=== PATIENT | female | born 1980 | race Caucasian/White ===

== ENCOUNTER 2019-07-28 09:26 | Outpatient (CLI) | payer BC ==
[2019-07-28 16:58] LABS: #Basophils 0.1 thou/uL (0.0-0.2); #Eosinphils 0.2 thou/uL (0.0-0.7); #Lymphocytes 2.6 thou/uL (1.20-3.40); #Monocytes 0.4 thou/uL (0.11-0.59); #Neutrophils 3.4 thou/uL (1.40-6.50); %Basophils 1.1 % (0.0-1.0); %Eosinophils 2.4 % (0.0-10.0); %Lymphocytes 39.3 % (21.0-51.0); %Monocytes 6.4 % (0.0-10.0); %Neutrophils 50.9 % (42.0-75.0); Hemoglobin 12.8 g/dL (12.0-16.0); Mean Corpuscular HGB CONC 33.7 g/dL (32.0-36.0); Mean Corpuscular Hemoglobin 31.9 pg (27.0-31.0); Mean Corpuscular Volume 94.8 fL (78.0-98.0); Mean Platelet Volume 7.1 fL (7.4-10.4); Platelet Count 237 thou/uL (130-400); RBC Distribution Width 11.4 % (11.5-14.5); Red Blood Cell (RBC) Count 4.02 mill/uL (4.20-5.40); White Blood Cell (WBC) Count 6.6 thou/uL (4.8-10.8)
[2019-07-28 17:06] LABS: BHCG - Serum Negative (NEGATIVE); Pregs Control Background? CLEAR/WHITE (CLR/WHITE); Pregs Control Bar Appear? YES (CONTROL BAR)
== END 2019-07-28 09:27 | disposition home or self-care (01) ==
LOC: LABBT 09:26
PROVIDERS: ATTEND Orthopaedic Surgery
DX: Z01.812 Encounter for preprocedural laboratory examination (principal); M24.9 Joint derangement, unspecified
CPT/HCPCS: 84703; 85025

== ENCOUNTER 2019-07-30 07:51 | Day surgery (SDC) | payer BC ==
[2019-07-28 16:31] VITALS: BMI 23.6
[2019-07-30] MEDS ORDERED: Clindamycin/D5W 600 mg/50 ml Premix Bag ONE (08:20)
[2019-07-30] MEDS ORDERED: Midazolam HCl 2 mg/2 ml Vial ONE (09:02)
[2019-07-30] MEDS ORDERED: Fentanyl 100 MCG/2 ML VIAL ONE ×2 (09:03→12:44)
[2019-07-30] MEDS ORDERED: Zolpidem Tartrate 5 MG TAB PO PRN (09:42)
[2019-07-30] MEDS ORDERED: HYDROcodone/Acetaminophen 5/325 mg Tablet PO PRN ×2 (09:42)
[2019-07-30] MEDS ORDERED: traMADol HCl 50 MG TAB PO PRN ×2 (09:42)
[2019-07-30] MEDS ORDERED: Ondansetron PF 4 MG/2 ML Vial IVP PRN (09:42)
[2019-07-30] MEDS ORDERED: Promethazine HCl 25 MG/ML VIAL IM PRN (09:42)
[2019-07-30] MEDS ORDERED: Ketorolac Tromethamine 30 MG/ML VIAL IVP PRN (09:42)
[2019-07-30] MEDS ORDERED: Ropivacaine 0.2% 550 ML 550 ML NERVE BLCK SCH (09:42)
[2019-07-30] MEDS ORDERED: Fentanyl 100 MCG/2 ML VIAL IV PRN (09:43)
[2019-07-30] MEDS ORDERED: Lidocaine 1% PF 5 ML VIAL ONE (10:50)
[2019-07-30] MEDS ORDERED: Ropivacaine 0.5% HCl/PF (150 MG/30 ML VIAL) ONE (10:50)
[2019-07-30] MEDS ORDERED: Ropivacaine 0.2% HCl/PF (40 MG/20 ML VIAL) ONE (10:50)
[2019-07-30] MEDS ORDERED: Ondansetron PF 4 MG/2 ML Vial ONE (10:50)
[2019-07-30] MEDS ORDERED: PROPOFOL 200 MG/20 ML VIAL ONE (10:50)
[2019-07-30] MEDS ORDERED: Rocuronium Bromide 10 MG/ML (10ML VIAL) ONE (10:50)
[2019-07-30] MEDS ORDERED: Ketorolac Tromethamine 30 MG/ML VIAL ONE (10:50)
[2019-07-30] MEDS ORDERED: Lidocaine 1% w/Epinephrine 1:100K 30 ML VIAL ONE (10:58)
--- NOTE | 2019-07-30 18:12 | OP ---
DATE OF PROCEDURE: 07/30/2019 PREOPERATIVE DIAGNOSIS: Left shoulder pain that has been unresponsive to nonoperative methods with a normal MRI. POSTOPERATIVE DIAGNOSIS: Biceps instability secondary to tear of the very upper portion of the subscap/bicipital sling leading to instability anteriorly. PROCEDURES PERFORMED: Left shoulder arthroscopy with subacromial decompression followed by open biceps tenodesis. SEWING PATTERN LAYOUT TECHNICIAN: Cristian Dickinson PA-C ESTIMATED BLOOD LOSS: Minimal. COMPLICATIONS: None. ANESTHESIA: She did have a general anesthetic. She also had a preoperative block. DISPOSITION: She went to recovery room in stable condition. IMPLANT: [employer] biceps tenodesis screw, which was 7 x 23. INDICATIONS: A 38-year-old female who has temporary relief from injections in the shoulder, but has failed to get long-lasting relief with the injections and therapy and at this time presenting for diagnostic arthroscopy and treatment as indicated. DESCRIPTION OF PROCEDURE: After all appropriate consent forms were explained and signed, she was taken back to the operative room and at this time was given general anesthetic. Once the level of anesthesia was appropriate, she was rolled into the right lateral decubitus position with all bony prominences well padded. Axillary roll was placed underneath the right axilla and a hughes bag was inflated to hold in this position. The arm was then suspended with 7 pounds in standard fashion. The left shoulder and upper extremity were then prepped and draped in standard surgical fashion. Bony anatomical landmarks were then drawn out and the subacromial space was infiltrated with Marcaine with epinephrine. Posterior portal was established. Scope was placed into the glenohumeral joint. Anterior working portal was made. At this time, diagnostic arthroscopy commenced. The articular surface of the humeral head and glenoid were in good condition. There were no loose bodies in the axillary pouch. The rotator cuff was intact. The biceps tendon on its undersurface appeared to be intact. As we evaluated the top portion of the biceps, it was apparent that there had been multiple times where there have been inflammation and subsequent scarring as there were multiple fibrous bands attaching it to the surrounding superior tissues and there was noted to be a tear of the upper portion of the subscapularis and when probing, appeared to be destabilization with the biceps coming out of the groove anteriorly. Again, posterior appeared normal. This area of the tear was debrided and at this time, a needle was used to penetrate the biceps tendon and a stitch was placed through it. The SERFAS energy was then used to cut the biceps off the labral insertion. We then repositioned the camera from the glenohumeral joint to the subacromial space. Lateral working portal was made. Bursa was removed from off the underlying rotator cuff and a small bony decompression was performed using the SERFAS energy as well as a shaver. Once this was done, the cuff was evaluated fully and found to be completely intact. At this time, we then removed the camera, drained the shoulder and went about to perform our biceps tenodesis. A 15 blade was used to incise down through skin. The Bovie was used to coagulate any brisk venous bleeding. The deltoid fascia fibers were opened sharply and finger dissection was then used to open these up in line with the fibers to get down to the underlying transverse humeral ligament. This was opened up and the biceps tendon pulled out of the wound. All brisk venous bleeding was coagulated. At this time, we sutured the biceps tendon and removed the intra-articular portion. We then placed our guide pin followed by using the 7-mm reamer to ream to a depth of 25. A 7 x 23 Bio[employer]posite Bio-Tenodesis screw was then used. We then tied our sutures over top of the screw, so the screw could not back out. At this time, we thoroughly irrigated and dried our incision. We allowed our deltoid to close upon itself. We ran a Vicryl to close our deltoid fascia, 2-0 Vicryl and nylon sutures to close skin. Each portal was then closed with simple nylon stitch as well. At this time, a bulky sterile dressing was applied. The patient was then awakened. She was taken to recovery room in stable condition. All counts were correct at the end of the case and she did receive preoperative IV antibiotics. Job ID: [id number]
== END 2019-07-30 14:07 | disposition home or self-care (01) ==
LOC: SDC 07:51
PROVIDERS: ATTEND Orthopaedic Surgery
PROC: 0RNK4ZZ Release Left Shoulder Joint, Percutaneous Endoscopic Approach (ICD-10-PCS; principal; 2019-07-30)
PROC: 0RBK4ZZ Excision of Left Shoulder Joint, Percutaneous Endoscopic Approach (ICD-10-PCS; principal; 2019-07-30)
PROC: 0RHK04Z Insertion of Internal Fixation Device into Left Shoulder Joint, Open Approach (ICD-10-PCS; principal; 2019-07-30)
PROC: 0LS20ZZ Reposition Left Shoulder Tendon, Open Approach (ICD-10-PCS; principal; 2019-07-30)
PROC: 3E0T3BZ Introduction of Anesthetic Agent into Peripheral Nerves and Plexi, Percutaneous Approach (ICD-10-PCS; principal; 2019-07-30)
DX: S46.012A Strain of muscle(s) and tendon(s) of the rotator cuff of left shoulder, initial encounter (principal); M25.312 Other instability, left shoulder; G89.18 Other acute postprocedural pain; Z87.820 Personal history of traumatic brain injury; Z88.0 Allergy status to penicillin; X50.1XXA Overexertion from prolonged static or awkward postures, initial encounter
CPT/HCPCS: A4306; C1713; J1885; J2001; J2250; J2405; J2704; J2795; J3010; J3490

== ENCOUNTER 2020-05-29 14:10 | Outpatient (CLI) | payer BC ==
--- NOTE | 2020-05-29 15:03 | MMO ---
Left Breast MAMMO Unilat Diag DDI LT+SAKSHI. CLINICAL HISTORY: Patient is 39 years old and is seen for additional evaluation requested at current screening. The patient has no family history of breast cancer. The patient has no personal history of cancer. The patient has a history of bilateral Implants - saline. VIEWS: The views performed were: left craniocaudal spot compression with tomosynthesis; left mediolateral oblique spot compression with tomosynthesis; left mediolateral with tomosynthesis; and left Implant displaced with tomosynthesis. FILMS COMPARED: The present examination has been compared to prior imaging studies performed at [facility] on 05/23/2020 and 05/29/2020. This study has been interpreted with the assistance of computer-aided detection. MAMMOGRAM FINDINGS: Additional views were performed. Left breast nodule persists. US was performed. Please see US report. IMPRESSION: FINDING IN THE LEFT BREAST IS PROBABLY BENIGN. FOLLOW-UP IN 6 MONTHS IS RECOMMENDED. THE RESULTS OF THIS EXAM WERE SENT TO THE PATIENT. ACR BI-RADS Category 3 - Probably benign finding - short interval follow-up suggested. [facility] will notify the patient of the need for additional imaging services. MAMMOGRAPHY NOTE: 1. A negative mammogram report should not delay a biopsy if a dominant of clinically suspicious mass is present. 2. Approximately 10% to 15% of breast cancers are not detected by mammography. 3. Adenosis and dense breasts may obscure an underlying neoplasm. Reported by: MAGALIS SEGURA MD Electonically Signed: [id number]
--- NOTE | 2020-05-29 15:36 | ULT ---
LEFT BREAST ULTRASOUND: Date: 05/29/2020 HISTORY: Abnormal mammogram of 05/23/2020. FINDINGS: Correlation is made with mammograms of 05/23/2020 and 05/29/2020. Sonographic evaluation of the 1 o'clock region of the left breast demonstrates a well-circumscribed, nonshadowing hypoechoic avascular nodule measuring about 4.0 x 3.0 x 3.0 mm. This has a somewhat comp kate appearance. IMPRESSION: BI-RADS Category 3 - Probably benign findings. A 6 month follow-up left breast ultrasound is recommen ded. Discussed in person with the patient at 1500 hours. The patient was given the option of a biopsy or a follow-up, and she is comfortable following it up i n 6 months with an ultrasound. POS: OFF
== END 2020-05-29 14:11 | disposition home or self-care (01) ==
LOC: BICMAMMO 14:10
PROVIDERS: ATTEND Family Medicine
DX: R92.8 Other abnormal and inconclusive findings on diagnostic imaging of breast (principal)
CPT/HCPCS: G0279

== ENCOUNTER 2023-06-20 13:14 | Outpatient (CLI) | payer BC | END 2023-06-20 13:15 | disposition home or self-care (01) | LOC: BICMAMMO 13:14 | PROVIDERS: ATTEND Family Medicine | DX: R92.8 Other abnormal and inconclusive findings on diagnostic imaging of breast (principal); N63.20 Unspecified lump in the left breast, unspecified quadrant; N64.89 Other specified disorders of breast | CPT/HCPCS: 77066; G0279 ==